=== PATIENT | female | born 1960 | race Caucasian/White ===

== ENCOUNTER → 2017-02-26 | Outpatient (CLI) | payer MEDICARE, OTHER ==
[2016-02-23 18:30] VITALS: BP 165/7
[~2017-02-26] MED LIST: CLIN300C8 PO; HYDR-971 PO; IBUP200T43 PO
--- NOTE | 2017-02-27 17:46 | SLEEP ---
DATE OF STUDY: 02/26/2017 SLEEP STUDY ATTENDING PHYSICIAN: Dr. Callaway. The patient is 56 years old who weighs 256 pounds with a BMI of 48. The patient's Stockwell score was 10. The patient had a history of sleep apnea diagnosed in the past and was prescribed CPAP at 12 cm of water, which she has not used it for several years. She lost 100 pounds since then. Another study was requested by primary care physician. During the night study, the patient spent 419 minutes in bed and slept for 395 minutes with a sleep efficiency of 94%. Sleep latency was 8 minutes with a REM latency of 133 minutes. Overall, sleep architecture showed increased stage I sleep, normal stage II sleep, normal slow wave and reduced REM sleep. During the night study, the patient had 1 obstructive apnea, 6 mixed apneas and no central apneas. There were 34 hypopneas. The patient's apnea-hypopnea index was 6 per hour with a supine index of 3 per hour and a REM index of 44 per hour. Review of nocturnal oximetry study revealed a mean oxygen saturation of 92% with the lowest of 81%. 58% of the time oxygen saturation remained between 80% and 89%. There was a sustained pattern of nocturnal hypoxia with episodic desaturation during REM sleep. EKG monitoring revealed normal sinus rhythm, average heart rate was 76 beats per minute. No sustained arrhythmias were observed. No PLMS were seen. Due to low AHI, the patient did not meet the split night criteria for CPAP initiation. IMPRESSION: 1. Mild sleep apnea-hypopnea syndrome with worsening during rapid eye movement sleep. Total apnea-hypopnea index is 6 per hour with a rapid eye movement apnea-hypopnea index of 44 per hour. 2. Sustained pattern of nocturnal hypoxia with rapid eye movement sleep related desaturations. This is critical of obesity hypoventilation syndrome. 3. No clinically significant periodic limb movements of sleep. RECOMMENDATIONS: 1. The patient did not meet the split night criteria for CPAP initiation. The patient had severe sleep apnea diagnosed in ____ and since weight loss of 100 pounds, the severity of sleep apnea has significantly improved. I would recommend continued weight loss. 2. If patient remains symptomatic despite further weight loss, then treatment options at that time would include trial of CPAP versus oral appliance. 3. The patient would qualify for 1 liter of oxygen to be used at nighttime. 4. Avoid ENTERTAINMENT DIRECTOR depressants. 5. Caution regarding driving until the patient's hypersomnia is resolved with the above recommendations. AIMEE ORDOÑEZ MD DR: AC/french JOB#: [id number] / [id number] hussein Callaway Dr.
== END | disposition home or self-care (01) ==
LOC: SLPLAB 18:33
PROVIDERS: ATTEND Internal Medicine Critical Care Medicine
DX: G47.33 Obstructive sleep apnea (adult) (pediatric) (principal)
CPT/HCPCS: 95810

== ENCOUNTER → 2018-10-13 | Outpatient (CLI) | payer MEDICARE, OTHER ==
[2016-02-23 18:30] VITALS: BP 165/7
[~2018-10-13] MED LIST changes: +HYDR-3164 PO; -HYDR-971 PO; +IBUP-1060 PO; -IBUP200T43 PO; +IBUP200T44 PO
--- NOTE | 2018-10-13 13:29 | RAD ---
DATE: 10/13/2018 EXAM: MAMMO MICHELLE SCREENING BILATERAL HISTORY: Routine screening COMPARISON: 07/21/2015 This study was interpreted with the benefit of Computerized Aided Detection (CAD). Breast Density: FATTY The breast parenchyma is primarily fatty replaced. Breast parenchyma level density A. FINDINGS: 2-D and 3-D tomosynthesis imaging was performed in CC and MLO projections. No suspicious breast densities are seen. Scattered benign type calcifications are present. IMPRESSION: There is no mammographic evidence of malignancy in either breast. BI-RADS CATEGORY: 2 BENIGN FINDING(S) RECOMMENDED FOLLOW-UP: 12M 12 MONTH FOLLOW-UP PQRS compliance statement: Patient information was entered into a reminder system with a target due date for the next mammogram. Mammography is a sensitive method for finding small breast cancers, but it does not detect them all and is not a substitute for careful clinical examination. A negative mammogram does not negate a clinically suspicious finding and should not result in delay in biopsying a clinically suspicious abnormality. "Our facility is accredited by the [employer] Mammography Program."
== END | disposition home or self-care (01) ==
LOC: MAMMO 09:31
PROVIDERS: ATTEND Family Medicine
DX: Z12.31 Encounter for screening mammogram for malignant neoplasm of breast (principal)
CPT/HCPCS: 77063; 77067

== ENCOUNTER 2018-11-22 14:37 | Emergency (ER) | payer MEDICARE, OTHER ==
[~2018-11-22] VITALS: Ht 152.4 cm; Wt 105.9 kg
[~2018-11-22 14:37] MED LIST changes: -IBUP-1060 PO
[2018-11-22] MEDS ORDERED: IV NORMAL SALINE 1000ML BAG 1,000 ML IV SCH (15:08)
[2018-11-22] MEDS ORDERED: fentaNYL PF VIAL 100 MCG/2 ML VIAL IV ONE (15:45)
[2018-11-22] MEDS ORDERED: ONDANSETRON PF 4 MG/2 ML VIAL. IV ONE (15:45)
[2018-11-22 15:46] LABS: BASO % 1 % (0-3); EOS # 0.1 x10^3/uL (0.0-0.7); EOS % 1 % (0-3); HEMATOCRIT 43.4 % (36.0-47.0); HEMOGLOBIN 14.7 g/dL (12.0-15.5); LYMPH # 1.9 x10^3/uL (1.0-4.8); LYMPH % 34 % (24-48); MEAN CORPUSCULAR HEMOGLOBIN 31 pg (25-35); MEAN CORPUSCULAR HGB CONC 34 g/dL (31-37); MEAN CORPUSCULAR VOLUME 92 fL (79-100); MONO # 0.4 x10^3/uL (0.0-1.1); MONO % 7 % (0-9); NEUT # 3.2 x10^3uL (1.8-7.7); NEUT % 57 % (31-73); PLATELET COUNT 155 x10^3/uL (140-400); RED BLOOD COUNT 4.74 x10^6/uL (3.50-5.40); RED CELL DISTRIBUTION WIDTH 14.1 % (11.5-14.5); WHITE BLOOD COUNT 5.5 x10^3/uL (4.0-11.0)
[2018-11-22 15:47] LABS: BILIRUBIN,URINE NEGATIVE (NEG); CLARITY,URINE CLEAR; COLOR,URINE YELLOW; NITRITE,URINE NEGATIVE (NEG); PH,URINE 7.5; PROTEIN,URINE NEGATIVE (NEG-TRACE)
[2018-11-22 15:55] LABS: BACTERIA,URINE 0 /HPF (0-FEW); RBC,URINE 0 /HPF (0-2); SQUAMOUS EPITHELIAL CELL,UR FEW /LPF
[2018-11-22 16:00] LABS: CALCIUM 9.4 mg/dL (8.5-10.1); CREATININE 0.6 mg/dL (0.6-1.0); GFR 102.7
[2018-11-22 16:06] LABS: ALBUMIN 3.8 g/dL (3.4-5.0); ALBUMIN/GLOBULIN RATIO 1.2 (1.0-1.7); TOTAL BILIRUBIN 0.6 mg/dL (0.2-1.0); TOTAL PROTEIN 7.1 g/dL (6.4-8.2)
[2018-11-22] MEDS ORDERED: CONTRAST GIVEN. MC PRN (16:30)
[2018-11-22] MEDS ORDERED: IOHEXOL 240 MG/ML 50ML VIAL. PO ONE (16:30)
[2018-11-22] MEDS ORDERED: IOHEXOL 300 MG/ML 100ML VIAL. IV ONE (16:30)
[2018-11-22] MEDS ORDERED: KETOROLAC 30 MG/ML VIAL. IV ONE (16:45)
[2018-11-22 17:00] VITALS: BP 118/77
--- NOTE | 2018-11-22 17:00 | RAD ---
CT ABD PELV W/ORAL IV CONTRAST Indication: Abdominal pain. Cervical cancer. Appendectomy. Hysterectomy. Exposure: One or more of the following individualized dose reduction techniques were utilized for this examination: 1. Automated exposure control 2. Adjustment of the mA and/or kV according to patient size 3. Use of iterative reconstruction technique. Technique: Intravenous contrast was given. No oral contrast per request. Lung bases are clear. Liver is not enlarged. Spleen unremarkable. Pancreas unremarkable. No evidence of adrenal mass. Kidneys demonstrate symmetric enhancement. Small low-density lesion of the lateral right kidney measures cystic density compatible with a cyst. No hydronephrosis. No calcified gallstone. The aorta is mildly calcified, no evidence of aneurysm. No significant lymph node enlargement. No significant small bowel distention. No evidence of acute colitis. Appendix is not clearly seen. No evidence of ascites. Urinary bladder is unremarkable. Degenerative spondylosis of the thoracolumbar spine. Vertebral body height and alignment are intact. No evidence of bone destruction. IMPRESSION: No evidence of acute findings in the abdomen or pelvis. Electronically signed by: Jaden Gerard MD (11/22/2018 4:58 PM) [facility]
[2018-11-22] MEDS ORDERED: IBUP-1060 PO (17:21)
--- NOTE | 2018-11-22 17:21 | PHYS DOC ---
Past Medical History Past Medical History: Anxiety, Asthma, CHF, Diabetes-Type II, High Cholesterol, Hypertension, Other Additional Past Medical Histor: SLEEP APNEA,HEMORRHOIDS,SEASONAL ALLERGIES,CERVICAL CA Past Surgical History: Appendectomy, Hysterectomy Alcohol Use: None Drug Use: None Adult General Chief Complaint Chief Complaint: ABDOMINAL PAIN HPI HPI Patient is a 58 year old female who presents with complaining of abdominal pain. Patient is resident of [facility] and brought in by her caregiver because of abdominal pain that started today as a constant by mouth medical pain without radiation. Patient states she had constipation for a few days and today had a few episodes of loose stool that was not related diarrhea. Patient complaining of anorexia without fever and chills, nausea and vomiting, urinary symptoms, history of the same pain. Review of Systems Review of Systems Constitutional: Denies fever or chills [] Eyes: Denies change in visual acuity, redness, or eye pain [] HENT: Denies nasal congestion or sore throat [] Respiratory: Denies cough or shortness of breath [] Cardiovascular: No additional information not addressed in HPI [] GI: Reports abdominal pain, denies nausea, vomiting, bloody stools. : Denies dysuria or hematuria [] Musculoskeletal: Denies back pain or joint pain [] Integument: Denies rash or skin lesions [] Neurologic: Denies headache, focal weakness or sensory changes [] Endocrine: Denies polyuria or polydipsia [] All other systems were reviewed and found to be within normal limits, except as documented in this note. Current Medications Current Medications Current Medications Medications (Trade) Dose Ordered Sig/Zaynab Start Time Stop Time Status Last Admin Dose Admin Fentanyl Citrate (Fentanyl 2ml Vial) 50 mcg 1X ONCE 11/22/18 15:45 11/22/18 15:46 DC 11/22/18 15:45 50 MCG Info (CONTRAST GIVEN -- Rx MONITORING) 1 each PRN DAILY PRN 11/22/18 16:30 11/24/18 16:29 Iohexol (Omnipaque 240 Mg/ml) 30 ml 1X ONCE 11/22/18 16:30 11/22/18 16:31 DC 11/22/18 16:43 30 ML Iohexol (Omnipaque 300 Mg/ml) 75 ml 1X ONCE 11/22/18 16:30 11/22/18 16:31 DC 11/22/18 16:43 75 ML Ketorolac Tromethamine (Toradol 30mg Vial) 30 mg 1X ONCE 11/22/18 16:45 11/22/18 16:46 DC 11/22/18 16:54 30 MG Ondansetron HCl (Zofran) 4 mg 1X ONCE 11/22/18 15:45 11/22/18 15:46 DC 11/22/18 15:45 4 MG Sodium Chloride 1,000 ml @ 1,000 mls/hr Q1H 11/22/18 15:08 11/22/18 16:07 DC 11/22/18 15:45 1,000 MLS/HR Allergies Allergies Allergies Coded Allergies Type Severity Reaction Last Updated Verified No Known Drug Allergies 02/23/16 No Physical Exam Physical Exam Constitutional: Well nourished, mild distress, non-toxic appearance, morbidly obese. [] HENT: Normocephalic, atraumatic, oropharynx moist. Eyes: PERRLA, EOMI, conjunctiva normal, no discharge. [] Neck: Normal range of motion, no tenderness, supple, no stridor. [] Cardiovascular:Heart rate regular rhythm, no murmur [] Lungs & Thorax: Bilateral breath sounds clear to auscultation [] Abdomen: Bowel sounds normal, soft, right abdominal guarding without tenderness no masses, no pulsatile masses. [] Skin: Warm, dry, no erythema, no rash. [] Back: No tenderness, no CVA tenderness. [] Extremities: No tenderness, no cyanosis, no clubbing, ROM intact, no edema. [] Neurologic: Alert and oriented X 3, normal motor function, normal sensory function, no focal deficits noted. [] Psychologic: Affect anxious, mood normal. [] Current Patient Data Vital Signs Vital Signs Date Time Temp Pulse Resp B/P (MAP) Pulse Ox O2 Delivery O2 Flow Rate FiO2 11/22/18 15:45 16 11/22/18 14:39 97.8 74 184/87 (119) 100 Room Air 97.8 Lab Values Laboratory Tests Test 11/22/18 14:30 11/22/18 15:40 Urine Collection Type Unknown Urine Color Yellow Urine Clarity Clear Urine pH 7.5 Urine Specific Sundance 1.010 Urine Protein Negative mg/dL (NEG-TRACE) Urine Glucose (UA) Negative mg/dL (NEG) Urine Ketones (Stick) Negative mg/dL (NEG) Urine Blood Negative (NEG) Urine Nitrite Negative (NEG) Urine Bilirubin Negative (NEG) Urine Urobilinogen Dipstick 1.0 mg/dL (0.2 mg/dL) Urine Leukocyte Esterase Small (NEG) Urine RBC 0 /HPF (0-2) Urine WBC 1-4 /HPF (0-4) Urine Squamous Epithelial Cells Few /LPF Urine Bacteria 0 /HPF (0-FEW) White Blood Count 5.5 x10^3/uL (4.0-11.0) Red Blood Count 4.74 x10^6/uL (3.50-5.40) Hemoglobin 14.7 g/dL (12.0-15.5) Hematocrit 43.4 % (36.0-47.0) Mean Corpuscular Volume 92 fL (79-100) Mean Corpuscular Hemoglobin 31 pg (25-35) Mean Corpuscular Hemoglobin Concent 34 g/dL (31-37) Red Cell Distribution Width 14.1 % (11.5-14.5) Platelet Count 155 x10^3/uL (140-400) Neutrophils (%) (Auto) 57 % (31-73) Lymphocytes (%) (Auto) 34 % (24-48) Monocytes (%) (Auto) 7 % (0-9) Eosinophils (%) (Auto) 1 % (0-3) Basophils (%) (Auto) 1 % (0-3) Neutrophils # (Auto) 3.2 x10^3uL (1.8-7.7) Lymphocytes # (Auto) 1.9 x10^3/uL (1.0-4.8) Monocytes # (Auto) 0.4 x10^3/uL (0.0-1.1) Eosinophils # (Auto) 0.1 x10^3/uL (0.0-0.7) Basophils # (Auto) 0.0 x10^3/uL (0.0-0.2) Sodium Level 137 mmol/L (136-145) Potassium Level 4.0 mmol/L (3.5-5.1) Chloride Level 103 mmol/L (98-107) Carbon Dioxide Level 23 mmol/L (21-32) Anion Gap 11 (6-14) Blood Urea Nitrogen 11 mg/dL (7-20) Creatinine 0.6 mg/dL (0.6-1.0) Estimated GFR (Cockcroft-Gault) 102.7 BUN/Creatinine Ratio 18 (6-20) Glucose Level 94 mg/dL (70-99) Calcium Level 9.4 mg/dL (8.5-10.1) Total Bilirubin 0.6 mg/dL (0.2-1.0) Aspartate Amino Transferase (AST) 22 U/L (15-37) Alanine Aminotransferase (ALT) 20 U/L (14-59) Alkaline Phosphatase 64 U/L (46-116) Total Protein 7.1 g/dL (6.4-8.2) Albumin 3.8 g/dL (3.4-5.0) Albumin/Globulin Ratio 1.2 (1.0-1.7) Lipase 116 U/L (73-393) Laboratory Tests 11/22/18 15:40 Laboratory Tests 11/22/18 15:40 EKG EKG [] Radiology/Procedures Radiology/Procedures [][facility] [address] [place], [place] [id number] IMAGING REPORT Signed PATIENT: ANDREA OTTO ACCOUNT: [id number] : 1960 LOCATION: ER AGE: 58 SEX: F EXAM STATUS: REG ER ORD. PHYSICIAN: COLLEEN SOTELO MD REASON: abdominal pain PROCEDURE: CT ABD PELV W/ORAL&IV CONTRAST CT ABD PELV W/ORAL IV CONTRAST Indication: Abdominal pain. Cervical cancer. Appendectomy. Hysterectomy. Exposure: One or more of the following individualized dose reduction techniques were utilized for this examination: 1. Automated exposure control 2. Adjustment of the mA and/or kV according to patient size 3. Use of iterative reconstruction technique. Technique: Intravenous contrast was given. No oral contrast per request. Lung bases are clear. Liver is not enlarged. Spleen unremarkable. Pancreas unremarkable. No evidence of adrenal mass. Kidneys demonstrate symmetric enhancement. Small low-density lesion of the lateral right kidney measures cystic density compatible with a cyst. No hydronephrosis. No calcified gallstone. The aorta is mildly calcified, no evidence of aneurysm. No significant lymph node enlargement. No significant small bowel distention. No evidence of acute colitis. Appendix is not clearly seen. No evidence of ascites. Urinary bladder is unremarkable. Degenerative spondylosis of the thoracolumbar spine. Vertebral body height and alignment are intact. No evidence of bone destruction. IMPRESSION: No evidence of acute findings in the abdomen or pelvis. Electronically signed by: Jaden Gerard MD (11/22/2018 4:58 PM) [facility] DICTATED and SIGNED BY: JADEN GERARD MD DATE: 11/22/18 5732 Course & Med Decision Making Course & Med Decision Making Pertinent Labs and Imaging studies reviewed. (See chart for details) Evaluation of patient in ER showed 58-year-old female patient presents of mental. Brought in because of abdominal pain. Patient had unremarkable physical exam except for voluntary guarding and anxiousness in ER. Labs and CT of abdomen and pelvis was unremarkable. Patient treated with IV fluid and pain medication and felt better. Patient tolerated oral intake. Plan discharge patient home to diagnose of abdominal pain. Dragon Disclaimer Dragon Disclaimer This electronic medical record was generated, in whole or in part, using a voice recognition dictation system. Departure Departure Impression: Primary Impression: Abdominal gas pain Additional Impressions: Morbid obesity with BMI of 45.0-49.9, adult Anxiety Disposition: 01 HOME, SELF-CARE (at 1720) Condition: IMPROVED Referrals: GABI SLOAN (PCP) Patient Instructions: Abdominal Pain Additional Instructions: Drink plenty of liquids Follow-up with your primary care physician in 3-5 days Return to ER if not getting better Do not eat solid food today Scripts Ibuprofen (IBUPROFEN) 800 Mg Tablet 800 MG PO PRN Q6HRS PRN for INFLAMMATION, #20 TAB Prov: COLLEEN SOTELO MD 11/22/18 Problem Qualifiers COLLEEN SOTELO MD Nov 22, 2018 17:21
== END 2018-11-22 17:35 | disposition home or self-care (01) ==
LOC: ER 14:37
DX: R14.1 Gas pain (principal); F41.9 Anxiety disorder, unspecified; E66.01 Morbid (severe) obesity due to excess calories; Z68.42 Body mass index [BMI] 45.0-49.9, adult; I11.0 Hypertensive heart disease with heart failure; I50.9 Heart failure, unspecified; E78.00 Pure hypercholesterolemia, unspecified; E11.9 Type 2 diabetes mellitus without complications; J45.909 Unspecified asthma, uncomplicated; Z90.89 Acquired absence of other organs; Z90.710 Acquired absence of both cervix and uterus
CPT/HCPCS: 36415; 74177; 80053; 81001; 83690; 85025; 87086; 96374; 96375; 99285; J1885; J2405; J3010; J7030; Q9966; Q9967

== ENCOUNTER → 2019-01-05 | Outpatient (CLI) | payer MEDICARE, OTHER ==
[~2019-01-05] MED LIST changes: +IBUP-1060 PO
--- NOTE | 2019-01-05 13:58 | RAD ---
EXAM: 3 views left shoulder DATE: 01/05/2019 12:00 AM INDICATION: Fall, lateral left shoulder pain COMPARISON: No Prior FINDINGS/ IMPRESSION: 1. No evidence of acute fracture or dislocation. 2. Joint spaces are preserved without significant degenerative/proliferative change. AC joint is congruent. 3. Humeral head is not high riding. Electronically signed by: Dameon Plummer MD (01/05/2019 1:55 PM) [facility]
== END | disposition home or self-care (01) ==
LOC: RAD 09:55
PROVIDERS: ATTEND Family Medicine
DX: S40.012A Contusion of left shoulder, initial encounter (principal); W19.XXXA Unspecified fall, initial encounter; Y93.89 Activity, other specified; Y92.89 Other specified places as the place of occurrence of the external cause; Y99.8 Other external cause status
CPT/HCPCS: 73030

== ENCOUNTER → 2020-01-21 | Outpatient (CLI) | payer MEDICARE, MEDICAID ==
--- NOTE | 2020-01-21 16:34 | RAD ---
DATE: 01/21/2020 11:20 AM EXAM: MAMMO MICHELLE SCREENING BILATERAL HISTORY: Screening COMPARISON: 10/13/2018, 07/21/2015 Bilateral CC and MLO views of the breasts were performed. Bilateral breast tomosynthesis was performed in CC and MLO projections. This study was interpreted with the benefit of Computerized Aided Detection (CAD). FINDINGS: Breast Density: FATTY The Breast Parenchyma is primarily fatty replaced. Breast parenchyma level density A. No suspicious masses, microcalcifications or architectural distortion is present to suggest malignancy in either breast. The visualized axillae are unremarkable. IMPRESSION: No mammographic evidence of malignancy. BI-RADS CATEGORY: 1 NEGATIVE RECOMMENDED FOLLOW-UP: 12M 12 MONTH FOLLOW-UP Annual screening mammography is recommended, unless clinically indicated sooner based on symptoms or change in physical exam. PQRS compliance statement: Patient information was entered into a reminder system with a target due date for the next mammogram. Mammography is a sensitive method for finding small breast cancers, but it does not detect them all and is not a substitute for careful clinical examination. A negative mammogram does not negate a clinically suspicious finding and should not result in delay in biopsying a clinically suspicious abnormality. "Our facility is accredited by the [employer] Mammography Program."
--- NOTE | 2020-01-21 17:26 | RAD ---
CHEST PA LATERAL Clinical indications: Shortness of air COMPARISON: December 14, 2009. Findings: No acute lung infiltrate or pleural effusion or pulmonary edema or lung mass or pneumothorax is seen. The heart size, pulmonary vasculature, mediastinum and both aby are unremarkable. The osseous structures appear intact. The colon is interposed between the liver and right hemidiaphragm. Impression: No acute radiographic abnormality is seen. Electronically signed by: Surjit Gentile MD (01/21/2020 5:23 PM) [id number]
== END | disposition home or self-care (01) ==
LOC: MAMMO 11:10
PROVIDERS: ATTEND Internal Medicine
DX: Z12.31 Encounter for screening mammogram for malignant neoplasm of breast (principal); E28.0 Estrogen excess
CPT/HCPCS: 71046; 77063; 77067

== ENCOUNTER → 2020-02-15 | Outpatient (CLI) | payer MEDICARE, MEDICAID ==
--- NOTE | 2020-02-15 23:19 | KCIC ---
INDICATION: Osteoporosis screening. Postmenopausal screening COMPARISON: None. TECHNIQUE: Bone densitometry was performed through the lumbar spine and proximal femur. FINDINGS: Lumbar Spine: BMD: 1.07 T-Score: 0.2 Proximal Femur: BMD: 1.02 T-Score: 0.6 IMPRESSION: 1. Lumbar spine falls within the normal range. 2. Proximal femur falls within the normal range. Electronically signed by: Alexx Walters MD (02/15/2020 11:17 PM) [id number]
== END | disposition home or self-care (01) ==
LOC: KCIC DEXA 08:08
PROVIDERS: ATTEND Internal Medicine
DX: Z13.820 Encounter for screening for osteoporosis (principal); N95.9 Unspecified menopausal and perimenopausal disorder
CPT/HCPCS: 77080

== ENCOUNTER → 2021-01-30 | Outpatient (CLI) | payer MEDICARE, MEDICAID ==
[~2021-01-30] MED LIST changes: -CLIN300C8 PO; +CLIN300C9 PO
--- NOTE | 2021-01-30 16:22 | RAD ---
INDICATION: 60 years of age asymptomatic female patient presents for screening mammography. TECHNIQUE: Full field craniocaudal and mediolateral oblique images of both breasts were obtained usi ng digital technique with tomosynthesis and also analyzed with computer-aided detection software. COMPARISON: 01/21/2020, 10/13/2018 BREAST COMPOSITION: Category A: The breasts are predominantly fatty. FINDINGS: Benign calcifications are present. No suspicious masses, microcalcifications or architectural distortion is present to suggest malignanc y in either breast. The visualized axillae are unremarkable. IMPRESSION: No mammographic evidence of malignancy. RECOMMENDATION: Annual screening mammography is recommended, unless clinically indicated sooner based on symptoms or change in physical exam. BIRADS 2: BENIGN This study was interpreted with the benefit of Computerized Aided Detection (CAD). Patient information is entered into the reminder system with a target due date for the next screening mammogram. Mammography is the most sensitive method for finding small breast cancers, but it does not detect the m all and is not a substitute for careful clinical examination. A negative mammogram does not negate a clinically suspicious finding and should not result in delay in biopsying a clinically suspicious a bnormality. "Our facility is accredited by the [employer] Mammography Program." Electronically signed by: Dameon Plummer MD (01/30/2021 4:19 PM) [id number]
== END ==
LOC: MAMMO 10:31
PROVIDERS: ATTEND Internal Medicine
DX: Z12.31 Encounter for screening mammogram for malignant neoplasm of breast (principal)
CPT/HCPCS: 77063; 77067

== ENCOUNTER → 2021-05-19 | Day surgery (SDC) | payer OTHER, MEDICAID ==
[~2021-05-19] VITALS: Ht 160 cm; Wt 93.1 kg
[~2021-05-19] MED LIST changes: +ASPI-630 PO; +BUSP30TA PO; +CLIN-94 PO; -CLIN300C9 PO; +FURO20TA3 PO; +IV RINGERS,LACTATED 1000ML 1,000 ML IV SCH; +LIDOCAINE 2% PF 5 ML VIAL. ONE; +LORA10TA3 PO; +ONDANSETRON PF 4 MG/2 ML VIAL. ONE; +OXYB5TAB10 PO; +POTA10TA12 PO; +PROP10TA PO; +PROPOFOL 10 MG/ML (20ML) VIAL. IV ONE; +SIMV10TA15 PO; +TRAZ-123 PO
[2021-05-19 07:24] VITALS: BP 140/75
[2021-05-19 08:55] VITALS: BP 109/73
--- NOTE | 2021-05-19 19:42 | CONS ---
DATE OF CONSULTATION: 05/19/2021 UPDATED HISTORY AND PHYSICAL REASON FOR CONSULTATION: Colorectal screening. HISTORY OF PRESENT ILLNESS: A 61-year-old female whose past medical history is significant for hypertension, hyperlipidemia, seen for screening colon exam. Bowel habits are regular without diarrhea or constipation. Weight and appetite are stable. There is no family history of colon cancer. There has been no hematochezia or melena. She is otherwise without additional complaints. PAST MEDICAL HISTORY: Significant for hypertension, hyperlipidemia. ALLERGIES: None. MEDICATIONS: Aspirin, BuSpar, furosemide, loratadine, oxybutynin, potassium chloride, Propranolol, simvastatin, and trazodone. PAST SURGICAL HISTORY: Noncontributory. REVIEW OF SYSTEMS: Per records. PHYSICAL EXAMINATION: GENERAL: Well-nourished, well-developed female who is alert, cooperative, in no acute distress. VITAL SIGNS: Temperature 97.6, pulse 90, respirations 20. LUNGS: Clear. CARDIOVASCULAR: Reveals an S1, S2, without S3, S4 or appreciable murmur. ABDOMEN: Reveals a soft abdomen, normal bowel sounds, without appreciable hepatosplenomegaly. EXTREMITIES: Reveals no cyanosis, clubbing or edema. IMPRESSION: Colorectal screening is recommended. Risks and benefits of procedure including risk of hemorrhage and perforation during operation were discussed. The patient is willing to proceed at this time. LUAN/PAMELA/IFRAH DR: Ivan TID: [id number]
== END | disposition home or self-care (01) ==
LOC: SURG 06:57
PROVIDERS: ATTEND Internal Medicine Gastroenterology
DX: Z12.11 Encounter for screening for malignant neoplasm of colon (principal); K64.0 First degree hemorrhoids; K57.30 Diverticulosis of large intestine without perforation or abscess without bleeding; K63.89 Other specified diseases of intestine; I10 Essential (primary) hypertension; E78.00 Pure hypercholesterolemia, unspecified; M19.90 Unspecified osteoarthritis, unspecified site; G47.30 Sleep apnea, unspecified; Z79.82 Long term (current) use of aspirin; Z79.899 Other long term (current) drug therapy; Z90.710 Acquired absence of both cervix and uterus; Z98.890 Other specified postprocedural states
CPT/HCPCS: G0121; J2405; J2704; 45378